=== PATIENT | male | born 1950 | race Caucasian/White ===

== ENCOUNTER → 2025-01-03 15:57 | Outpatient (REF) | payer MEDICARE, OTHER, SELFPAY ==
--- OUTSIDE RECORDS SUMMARY | 2025-01-03 16:58 | XMS_ITS | Clinical Summary ---
Author Organization [facility] Food Reporter Address [address] [place] [address] Care Team Providers Care Cracking Unit Operator Name Role Phone Dina Lo MD Primary Care Provider Source Comments [facility] Food Reporter,non-owned Affiliates and Associated Physician Practices is amultiple site organization consisting of ambulatory clinics and hospital sitesin [place], [place], [place] and [place]. This disclosure is being madepursuant to the Care Everywhere program and may not contain all information available regarding this patient. Last updated 18.[facility] Food Reporter Allergies No known active allergies Medications * Be aware that medications may not be up to date on this document. Alwaysverify current medications with the patient. Medication Sig Dispensed Refills Start Date End Date Status amLODIPine (NORVASC) 5 MG tablet Take 5 mg by mouth once daily. Active atorvastatin (LIPITOR) 10 MG tablet Take 10 mg by mouth at bedtime. Active multivitamin daily (THERAGRAN) tablet Take 1 Tab by mouth daily with food. Active Social History Tobacco Use Types Packs/Day Years Used Date Smoking Tobacco: Former Sex and Gender Information Value Date Recorded Sex Assigned at Not on file Gender Identity Not on file Sexual Orientation Not on file Last Filed Vital Signs Vital Sign Reading Time Taken Comments Blood Pressure 141/83 01/03/2013 11:51 AM CDT Pulse 67 01/03/2013 11:51 AM CDT Temperature - - Respiratory Rate 16 01/03/2013 11:51 AM CDT Oxygen Saturation 97% 01/03/2013 11:51 AM CDT Inhaled Oxygen Concentration - - Weight - - Height - - Body Mass Index - - Plan of Treatment Health Maintenance Due Date Last Done Comments COLOGUARD (AGES 45-75) - COL ON CA SCREENING 1952 COLON MONITORING 1952 COLONOSCOPY - COLON CA SCREENING 1952 CT COLONOGRAPHY - COLON CA SCREENING 1952 Colorectal Cancer Screening 1952 FIT - COLON CA SCREENING 1952 FLEX SIG - COLON CA SCREENING 1952 HEPATITIS C SCREENING 10/07/1970 DTAP/TDAP/TD VACCINES (1 - Tdap) 1971 PNEUMOCOCCAL VACCINE 50+ (1 of 1 - PCV) 2002 ZOSTER VACCINE (1 of 2) 2002 AAA SCREENING 2017 COVID-19 VACCINE (1 - 2023-2 5 season) 2024 DEPRESSION SCREENING 09/28/2024 INFLUENZA VACCINE (Season Ended) 2025 Respiratory Syncytial Virus (RSV) Vaccine Pt: or over 60 yrs (1 - 1-dose 75+ series) 2027 HEPATITIS B VACCINE Aged Out No longe r eligible based on patient's age to complete this topic HIB VACCINE Aged Out No longer eligi ble based on patient's age to complete this topic HPV VACCINE Aged Out No longer eligi ble based on patient's age to complete this topic MENINGOCOCCAL (Group B) VACC INE SHARED DECISION-MAKING Aged Out No longer eligibl e based on patient's age to complete this topic MENINGOCOCCAL GROUPS A/C/Y/W VACCINE Aged Out No longer eligible b ased on patient's age to complete this topic Care Teams Cracking Unit Operator Relationship Specialty Start Date End Date Dina Lo MD [address] [place] [address] PCP - General Internal Medicine 12/31/12
--- OUTSIDE RECORDS SUMMARY | 2025-01-03 16:58 | XMS_ITS | Referral Summary ---
Author Organization [facility] Address [address] [place] [address] Care Team Providers Care Permit Coordinator Name Role Phone Dina Lo MD Primary Care Provider Allergies No known active allergies Medications amLODIPine (NORVASC) 5 mg tablet Take 1 tablet (5 mg total) by mouth daily 11 08/17/2018 Active atorvastatin (LIPITOR) 20 mg tablet Take 1 tablet (20 mg total) by mouth daily 11 08/17/2018 Active multivitamin,tx -minerals (VITAMINS AND MINERALS) tablet Take 1 tablet by mouth Active amoxicillin 500 mg capsule TAKE 4 CAPSULES BY MOUTH 1HR PRIOR TO APT, FOLLOWED BY 2 CAPS 6 HRS LATER 12/25/2020 Active aspirin 325 mg enteric coated tablet Take 1 tablet (325 mg total) by mouth 2 (two) times a day 09/30/2022 Active cholecalciferol (VITAMIN D-3) 2000 unit capsule Take by mouth Active cyclobenzaprine (FLEXERIL) 10 mg tablet Take 1 tablet (10 mg total) by mouth 3 (three) times a day as needed 10/02/2022 Active Active Problems Problem Noted Date Diagnosed Date Muscle strain of forearm, initial encounter 01/26 Lateral epicondylitis of left elbow 02/04/2021 Tear of left rotator cuff 08/16/2019 Overview (08/16/2019): Added automatically from request for surgery [id number] Aftercare following right knee joint replacement surgery 10/29/2017 Social History Tobacco Use Types Packs/Day Years Used Date Smoking Tobacco: Former Cigarettes 1 17 1 970 - 1986 Smokeless Tobacco: Former Chew Quit: 1989 Alcohol Use Standard Drinks/Week Comments No 0 (1 standard drink = 0.6 oz pur e alcohol) Sex and Gender Information Value Date Recorded Sex Assigned at Not on file Legal Sex Male 8:05 AM CONSULTING MANAGER Gender Identity Not on file Sexual Orientation Not on file Last Filed Vital Signs Vital Sign Reading Time Taken Comments Blood Pressure 124/71 08/18/2019 1:35 PM CONSULTING MANAGER Pulse 85 08/18/2019 1:45 PM CONSULTING MANAGER Temperature 36.8 C (98.2 F) 08/18/2019 12:01 PM CONSULTING MANAGER Respiratory Rate 19 08/18/2019 1:45 PM CONSULTING MANAGER Oxygen Saturation 95% 08/18/2019 1:45 PM CONSULTING MANAGER Inhaled Oxygen Concentration - - Weight 86.2 kg (190 lb) 02/04/2021 4:37 PM CDT Height 182.9 cm (6') 02/04/2021 4:37 PM CDT Body Mass Index 25.77 02/04/2021 4:37 PM CDT Plan of Treatment Not on file Medical Devices Implanted Type Area Soil Expert Device Identifier Shelf Expiration Date Model / Serial / Lot [employer] Ar-2267 Locker Room Supervisor Large Eyelet Pectoralis Button Fixation Latex Free - S00 - [id number] Implanted:Qty: 2 on 08/18/2019 by Moiz Haddad MD at [facility] Left: Shoulder [employer] 06/27/2024 AR-2267 / 00 / [id number] Insurance COMMERCIAL GENERIC MEDICARE [employer] MEDICARE [place] [address] COMMERCIAL GENERIC Care Teams Permit Coordinator Relationship Specialty Start Date End Date Dina Lo MD [address] [place] [address] [place] [address] PCP - General 02/04/18
--- OUTSIDE RECORDS SUMMARY | 2025-01-03 16:58 | XMS_ITS | Clinical Summary ---
Author Organization [facility] Address [address] [place] [address] Care Team Providers Care Property Utilization Officer Name Role Phone Dina Lo MD Primary Care Provider [phone] Allergies No known active allergies Medications amLODIPine [...] (08/16/2019): Added automatically from request for surgery [id number] Aftercare following right knee joint replacement surgery 10/29/2017 Surgical History Surgery Date Site/Laterality Comments KNEE SURGERY Bilateral Meniscus repair REPLACEMENT TOTAL KNEE 09/28/2016 - 10/28/2016 Right ROTATOR CUFF REPAIR 2009 & 2010 Bilateral right--2009 left--2010 Medical History Medical History Date Comments Hypertension well controlled on meds Hyperlipidemia well controlled on meds Family History Medical History Relation Name Comments Heart disease Other 1 Family history of cardiac disorder - (Added by TW Conv) Seizures Other 2 Family history of seizures - (Added by TW Conv) Cancer Other 3 Family history of malignant neoplasm - (Added by TW Conv) Diabetes Other 4 Family history of diabetes mellitus - (Added by TW Conv) Relation Name Status Comments Other 1 Other 2 Other 3 Other 4 Social History Tobacco Use Types Packs/Day Years Used Date Smoking Tobacco: Former Cigarettes 1 17 1 - 1986 Smokeless Tobacco: Former Chew Quit: 1989 Alcohol Use Standard Drinks/Week Comments No 0 (1 standard drink = 0.6 oz pur e alcohol) Sex and Gender Information Value Date Recorded Sex Assigned at Not on file Legal Sex Male 8:05 AM RIVER BOAT CAPTAIN Gender Identity Not on file Sexual Orientation Not on file Obstetrics History Last Filed Vital Signs Vital Sign Reading Time Taken Comments Blood Pressure 124/71 08/18/2019 1:35 PM RIVER BOAT CAPTAIN Pulse 85 08/18/2019 1:45 PM RIVER BOAT CAPTAIN Temperature 36.8 C (98.2 F) 08/18/2019 12:01 PM RIVER BOAT CAPTAIN Respiratory Rate 19 08/18/2019 1:45 PM RIVER BOAT CAPTAIN Oxygen Saturation 95% 08/18/2019 1:45 PM RIVER BOAT CAPTAIN Inhaled Oxygen Concentration - - Weight 86.2 kg (190 lb) 02/04/2021 4:37 PM CDT Height 182.9 cm (6') 02/04/2021 4:37 PM CDT Body Mass Index 25.77 02/04/2021 4:37 PM CDT Plan of Treatment Health Maintenance Due Date Last Done Comments Colon Cancer Screening-Colonoscopy 1952 Depression Screening 1952 Fall Risk Assessment 1952 Hepatitis C Screening 1952 Hepatitis B Screening 1970 Zoster Vaccine (2 of 3) 02/09/2013 12/15/2012 Abdominal Aortic Aneurysm (A AA) Screen 2017 Well Visit 65+ 2017 Pneumococcal vaccine 65+ (2 of 2 - PPSV23) 12/31/2018 12/31/2017 Influenza Vaccine (Season Ended) 2025 07/14/2018, 06/24/2017, 06/23/2017, Additional history exists DTaP/Tdap/Td Vaccine (2 - Td or Tdap) 01/19/2027 01/19/2017 Medical Devices Implanted Type Area Telesales Consultant Device Identifier Shelf Expiration Date Model / Serial / Lot [employer] Ar-2267 Machinist General Large Eyelet Pectoralis Button Fixation Latex Free - S00 - [id number] Implanted:Qty: 2 on 08/18/2019 by Moiz Haddad MD at [facility] Left: Shoulder [employer] 06/27/2024 AR-2267 / 00 / [id number] Insurance COMMERCIAL GENERIC MEDICARE [employer] MEDICARE [employer]IL[employer] COMMERCIAL GENERIC MEDICARE [employer]RO[employer] COMMERCIAL GENERIC Care Teams Property Utilization Officer Relationship Specialty Start Date End Date Dina Lo MD [address] [place] [address] [address] [place], SUZIE [address] PCP - General 02/04/18
--- OUTSIDE RECORDS SUMMARY | 2025-01-03 16:58 | XMS_ITS | Encounter Summary ---
Author Organization [facility] Address [address] [place] [address] Care Team Providers Care Forepart Laster Name Role Phone Unavailable Primary Care Provider Unavailabl e Encounter Details Date Type Department Care Team (Late st Contact Info) Description 03/24/2000 Outpatient Historical [facility] Lela Iqbal MD Social History Tobacco Use Types Packs/Day Years Used Date Smoking Tobacco: Never Assessed Sex and Gender Information Value Date Recorded Sex Assigned at Male 01/08/2024 11:22 AM CDT Legal Sex Male 4:28 AM DECORATOR CONSULTANT Gender Identity Male 01/08/2024 11:22 AM CDT Sexual Orientation Not on file documented as of this encounter Plan of Treatment Upcoming Encounters Date Type Department Care Team (Late st Contact Info) Description 02/09/2025 1:15 PM CDT Office Visit [facility] at the [facility] [address] [place] [phone] Aaron Santos MD [address] [phone] 09/29/2025 9:30 AM DECORATOR CONSULTANT Office Visit [facility] at the [facility] [address] [place] [phone] Aaron Santos MD [address] [place] [phone] documented as of this encounter Visit Diagnoses Not on filedocumented in this encounter
--- OUTSIDE RECORDS SUMMARY | 2025-01-03 16:58 | XMS_ITS | Clinical Summary ---
Author Organization [facility] Address [address] [place] [address] Phone Care Team Providers Care Tdp Displays Analyst Name Role Phone Unavailable Primary Care Provider Unavailabl e Allergies No known active allergies Medications amLODIPine (NORVASC) 5 mg tablet Take 5 mg by mouth daily. 05/12/2022 Active atorvastatin (LIPITOR) 20 mg tablet Take 20 mg by mouth daily. 06/03/2022 Active ASCORBIC ACID, VITAMIN C, ORAL Take by mouth. Active MAGNESIUM ORAL Take by mouth. Active cyclobenzaprine (FLEXERIL) 10 mg tablet Take 1 Tablet (10 mg) by mouth 3 times daily as needed for Spasm. 30 Tablet 10/02/2022 Active Cholecalciferol, Vitamin D3, 50 mcg (2,000 unit) Capsule Take by mouth. Active Active Problems Problem Noted Date Diagnosed Date Bilateral Shoulder Impingement 11/01/2024 Right Shoulder Pain 11/01/2024 S/P Left Total Hip Arthroplasty 09/30/22 H/O Right Shoulder Arthroscopy, RTCR (Dr. Brenda kaufman) 11/01/2024 Left lateral epicondylitis 07/01/2022 No known allergies 07/01/2022 S/P arthroscopy of left shoulder 07/29/2019 H/O R TKA Manipulation 12/24/2017 12/24/2017 S/P total knee replacement, right 10/13/2017 Encounters Date Type Department Care Team Description 12/23/2024 8:05 AM CDT Ancillary Procedure [facility] at the [facility] [address] [phone] Aaron Santos MD Injury of tendon of long head of right biceps, initial encounter 12/23/2024 8:00 AM CDT Office Visit [facility] at the [facility] [address] [place] [address] [address] [phone] Aaron Santos MD Rupture Long Head Right Biceps Tendon 12/13/2024 (Primary Dx); Right Shoulder Pain; Bilateral Shoulder Impingement; S/P Left Shoulder Surgery (Dr. Allen); H/O Right Shoulder Arthroscopy, RTCR (Dr. Allen); H/O Right TKA Manipulation 12/24/2017 (Dr. Ley); S/P Right Total Knee Arthroplasty 10/13/17; S/P Left Total Hip Arthroplasty 09/30/22 12/14/2024 External Device Data STL ABSTRACTION Provider, Abstract 12/05/2024 External Device Data STL ABSTRACTION Provider, Abstract 11/22/2024 External Device Data STL ABSTRACTION Provider, Abstract 10/31/2024 9:40 AM ROVING OR YARN COLOR CHECKER Ancillary Procedure [facility] Surgery at the [address] [phone] Aaron Santos MD Bilateral Shoulder Impingement 10/31/2024 9:00 AM ROVING OR YARN COLOR CHECKER Office Visit [facility] Surgery at the [address] [phone] Aaron Santos MD Bilateral Shoulder Impingement (Primary Dx); Right Shoulder Pain; H/O Right Shoulder Arthroscopy, RTCR (Dr. Allen); H/O Right TKA Manipulation 12/24/2017 (Dr. Ley); S/P Right Total Knee Arthroplasty 10/13/17; S/P Left Shoulder Surgery (Dr. Allen); S/P Left Total Hip Arthroplasty 09/30/22 10/25/2024 External Device Data STL ABSTRACTION Provider, Abstract 10/19/2024 External Device Data STL ABSTRACTION Provider, Abstract from Last 3 Months Social History Tobacco Use Types Packs/Day Years Used Date Smoking Tobacco: Former Cigarettes Q uit: 1982 Smokeless Tobacco: Former Chew Quit: 1982 Tobacco Cessation:Counseling Given: Not Answered Alcohol Use Standard Drinks/Week Comments Not Currently 0 (1 standard drink = 0.6 oz pur e alcohol) Sex and Gender Information Value Date Recorded Sex Assigned at Male 01/08/2024 11:22 AM CDT Legal Sex Male 4:28 AM ROVING OR YARN COLOR CHECKER Gender Identity Male 01/08/2024 11:22 AM CDT Sexual Orientation Not on file Last Filed Vital Signs Vital Sign Reading Time Taken Comments Blood Pressure 142/82 02/16/2023 11:27 AM CDT Pulse 72 10/01/2022 12:34 PM ROVING OR YARN COLOR CHECKER Temperature 36.6 C (97.9 F) 10/01/2022 12:34 PM ROVING OR YARN COLOR CHECKER Respiratory Rate 18 10/01/2022 12:34 PM ROVING OR YARN COLOR CHECKER Oxygen Saturation 100% 10/01/2022 12:34 PM ROVING OR YARN COLOR CHECKER Inhaled Oxygen Concentration - - Weight 86.6 kg (191 lb) 10/31/2024 9:28 AM ROVING OR YARN COLOR CHECKER Height 182.9 cm (6') 10/31/2024 9:28 AM ROVING OR YARN COLOR CHECKER Body Mass Index 25.9 10/31/2024 9:28 AM ROVING OR YARN COLOR CHECKER Plan of Treatment Upcoming Encounters Date Type Department Care Team (Late st Contact Info) Description 02/09/2025 1:15 PM CDT Office Visit [facility] at the [facility] [address] [phone] Aaron Santos MD [address] [phone] 09/29/2025 9:30 AM ROVING OR YARN COLOR CHECKER Office Visit [facility] at the [facility] [address] [phone] Aaron Santos MD [address] [facility] [address] [place] [address] Health Maintenance Due Date Last Done Comments DTAP/TDAP/TD VACCINES (1 - Tdap) 1971 COLORECTAL SCREENING 1997 Colorectal Cancer Screening 1997 FIT-DNA Q 3 years 1997 FIT/FOBT Q 1 year 1997 Flex Sig/CT Colonography Q 5 years 1997 PNEUMOCOCCAL VACCINE 50+ YEARS (1 of 1 - PCV) 10/11/19 03 ZOSTER VACCINE (1 of 2) 2002 Abdominal Aortic Aneurysm (AAA) Screening 2017 INFLUENZA VACCINE (#1) 2024 RSV VACCINE (60+ or ) (1 - 1-dose 75+ series) 2027 Medical Devices Implanted Type Area Assistant Facility Manager Device Identifier Shelf Expiration Date Model / Serial / Lot Shell G7 Pps Lmtd Hl 58mm [id number] - [id number] Implanted:Qty: 1 on 09/30/2022 by Aaron Santos MD at [facility] Hip Left: Hip [employer] [id number] 10/16/2031 [id number] / / [id number] Liner G7 Acet Nutrl 36mm Sz G Longevity [id number] - [id number] Implanted:Qty: 1 on 09/30/2022 by Aaron Santos MD at [facility] Hip Left: Hip [employer] [id number] 03/27/2024 / / [id number] Stem Fem Tprloc Microp Sz12 107.5mm Std Ofst Type 1 -[id number] - [id number] Implanted:Qty: 1 on 09/30/2022 by Aaron Santos MD at [facility] Hip Left: Hip [employer] [id number] 09/06/2031 [id number] / / [id number] Head Modular Noskt 36mm -3mm -[id number] - [id number] Implanted:Qty: 1 on 09/30/2022 by Aaron Santos MD at [facility] Hip Left: Hip [employer] 04/29/[id number] / / [id number] Screw Trlgy St 6.5x25mm [id number] - [id number] Implanted:Qty: 1 on 09/30/2022 by Aaron Santos MD at [facility] Screw Left: Hip [employer] [id number] 08/11/2032 [id number] / / [id number] Screw Trlgy St 6.5x30mm [id number] - [id number] Implanted:Qty: 1 on 09/30/2022 by Aaron Santos MD at [facility] Screw Left: Hip [employer] [id number] 03/31/2032 [id number] / / [id number] Right Knee Replacement Bilateral Shoulder Rainier Hernia Mesh Procedures Procedure Name Priority Date/Time Associated Diagnosis Comments XR SHOULDER 2+ VW RIGHT Routine 12/23/2024 8:09 AM CDT Injury of tendon of long head of right biceps, initial encounter XR SHOULDER 2+ VW RIGHT Routine 10/31/2024 9:47 AM ROVING OR YARN COLOR CHECKER Bilateral Shoulder Impingement from Last 3 Months Results * XR SHOULDER 2+ VW RIGHT (12/23/2024 8:09 AM CDT) Only the most recent of2 resultswithin the time period is included. Anatomical Region Laterality Modality Upper Extremity Computed Radiogr aphy Narrative 12/23/2024 12:25 PM CDT Radiographic examination of 4 views of the right shoulder reveal no evidence of fractures, lesions or masses. The glenohumeral joint is well aligned with joint space narrowing and mild degenerative changes. The a.c. joint is also well aligned with some degenerative changes. Metallic anchors consistent with prior rotator cuff repair are noted. Mild osteopenia is noted. Aaron Santos MD DIAGNOSTIC IMAGING ORDERA BLES Final Result from Last 3 Months Insurance MEDICARE [employer]ROAD [facility] [id number] RX [facility] Medicare Part D Advance Directives For more information, please contact: [phone] * Full Code (Latest Code Status on File) Date Activated Date Inactivated Comments 09/30/2022 5:32 AM 10/01/2022 8:29 PM
== END ==
LOC: ANHLAB 15:57
PROVIDERS: Visit Provider Plastic Surgery
DX: D48.5 Neoplasm of uncertain behavior of skin (principal)
CPT/HCPCS: 88305